=== PATIENT | male | born 2005 | race Caucasian/White ===

== ENCOUNTER 2023-07-01 02:20 | Emergency (ER) | payer OTHER ==
[~2023-07-01] VITALS: Ht 170.2 cm; Wt 72.6 kg
[2023-07-01 02:28] VITALS: BP 132/85; PULSE 88; RESP 16; TEMP 98.2; O2SAT 100
[2023-07-01] MEDS: IBUPROFEN 600 MG TAB PO ONE (04:39)
== END 2023-07-01 04:42 ==
LOC: MED 02:20
DX: S60.221A Contusion of right hand, initial encounter (principal); V49.88XA Car occupant (driver) (passenger) injured in other specified transport accidents, initial encounter; Y93.89 Activity, other specified; Y92.89 Other specified places as the place of occurrence of the external cause; Y99.8 Other external cause status
CPT/HCPCS: 73130; 99283